=== PATIENT | male | born 1990 | race Caucasian/White ===

== ENCOUNTER → 2017-09-28 07:25 | Outpatient (CLI) | payer MEDICAID, SELFPAY | PROVIDERS: Family Provider Family Medicine; PCP Family Medicine; Visit Provider Family Medicine | DX: R07.2 Precordial pain (principal) | CPT/HCPCS: 93017 ==

== ENCOUNTER → 2018-05-05 14:04 | Outpatient (CLI) | payer MEDICAID, SELFPAY ==
--- NOTE | 2018-05-05 14:15 | XR_ITS ---
XR chest 2V HISTORY: Cough, shortness of air ITS.REASON: BRONCHITIS ORDERING PHYSICIAN: ANN Mancini PATIENT AGE: 28 years COMPARISON: 09/21/2017 FINDINGS: The cardiomediastinal silhouette and pulmonary vascularity are within normal limits. There is chronic blunting of left CP angle is clips in this region. Consolidation is present in the right lower lobe consistent with pneumonia. There are some nodular opacities in this region as well therefore, recommend follow-up until clear. No acute bony anomalies. IMPRESSION: 1. Dense consolidation in the right lower lobe consistent with pneumonia with some rounded opacities may rounded pneumonic consolidation. Recommend follow-up until clear. 2. Chronic changes in the left lung base
== END ==
PROVIDERS: PCP Family Medicine; Visit Provider Physician Assistant
DX: J40 Bronchitis, not specified as acute or chronic (principal)
CPT/HCPCS: 71046

== ENCOUNTER → 2018-06-17 10:04 | Outpatient (CLI) | payer MEDICAID, SELFPAY ==
--- NOTE | 2018-06-17 10:10 | XR_ITS ---
XR chest 2V HISTORY: ITS.REASON: PNEUMONIA OF RT LOWER LOBE ORDERING PHYSICIAN: ANN Mancini PATIENT AGE: 28 years COMPARISON: 04/25/2018 FINDINGS: Unremarkable cardiovascular structures. There is chronic blunting of the left CP angle. Increased consolidation is noted in the right lower lobe have a somewhat lobular contour. Neoplasm is a consideration and chest CT with contrast is suggested for further evaluation. No acute bony anomalies. IMPRESSION: Worsening consolidation in the right lower lobe with rounded contour. Neoplasm or abscess is a consideration and chest CT with contrast is recommended for further evaluation
== END ==
PROVIDERS: PCP Family Medicine; Visit Provider Physician Assistant
DX: J18.1 Lobar pneumonia, unspecified organism (principal)
CPT/HCPCS: 71046

== ENCOUNTER → 2018-06-28 10:45 | Outpatient (CLI) | payer MEDICAID, SELFPAY ==
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
== END ==
PROVIDERS: PCP Physician Assistant; Visit Provider Physician Assistant
DX: J18.1 Lobar pneumonia, unspecified organism (principal)
CPT/HCPCS: 71260; Q9967

== ENCOUNTER → 2018-10-04 16:40 | Outpatient (CLI) | payer MEDICAID, SELFPAY ==
--- NOTE | 2018-10-04 16:44 | XR_ITS ---
XR chest 2V HISTORY: Follow-up pneumonia/masslike consolidation ITS.REASON: FOLLOW UP RLL LESION ORDERING PHYSICIAN: Arun Palma MD PATIENT AGE: 28 years COMPARISON: 06/17/2018, 06/28/2018 FINDINGS: The cardiomediastinal silhouette and pulmonary vascularity are within normal limits. There are chronic changes in the left lower lobe with chronic pleural thickening and blunting of the left CP angle. There remains some patchy density in the right lower lobe consistent with some residual pneumonia. The right lower lobe pneumonia has however shown moderate improvement. No acute bony findings. IMPRESSION: Persistent but improving right lower lobe pneumonia with chronic changes in the left lung base
== END ==
PROVIDERS: PCP Family Medicine; Visit Provider Family Medicine
DX: R91.1 Solitary pulmonary nodule (principal); J18.9 Pneumonia, unspecified organism
CPT/HCPCS: 71046

== ENCOUNTER → 2018-10-21 13:03 | Outpatient (CLI) | payer MEDICAID, SELFPAY ==
--- NOTE | 2018-10-21 13:08 | XR_ITS ---
XR knee LT 3V HISTORY: ITS.REASON: pain ORDERING PHYSICIAN: Che Castano MD PATIENT AGE: 28 years COMPARISON: None FINDINGS: No fracture or dislocation. No lytic or blastic change. Normal mineralization. No significant arthritic changes evident. No other significant findings IMPRESSION: Negative Knee
== END ==
PROVIDERS: PCP Family Medicine; Visit Provider Orthopaedic Surgery
DX: S76.319A Strain of muscle, fascia and tendon of the posterior muscle group at thigh level, unspecified thigh, initial encounter (principal)
CPT/HCPCS: 73562

== ENCOUNTER → 2018-11-22 11:49 | Outpatient (CLI) | payer MEDICAID, SELFPAY | PROVIDERS: PCP Family Medicine; Visit Provider Family Medicine | DX: G47.33 Obstructive sleep apnea (adult) (pediatric) (principal); R06.83 Snoring | CPT/HCPCS: 95806 ==

== ENCOUNTER → 2019-03-29 13:11 | Outpatient (CLI) | payer OTHER, SELFPAY | PROVIDERS: PCP Family Medicine; Visit Provider Nurse Practitioner Family | DX: G47.33 Obstructive sleep apnea (adult) (pediatric) (principal); G47.34 Idiopathic sleep related nonobstructive alveolar hypoventilation | CPT/HCPCS: 94762 ==

== ENCOUNTER → 2019-06-15 12:11 | Outpatient (CLI) | payer OTHER, SELFPAY ==
[2019-06-15 14:34] LABS: Blood Urea Nitrogen 21 mg/dl (9-20); Estimated Glomerular Filt Rate 113 ml/min (>60); GFR (African American) 136 ML/MIN (>60); Glucose,Random 123 mg/dL (74-100); Potassium 4.7 mmoL/L (3.5-5.1); Uric Acid 6.5 mg/dl (3.5-8.5)
== END ==
PROVIDERS: Visit Provider Physician Assistant Medical
DX: L70.0 Acne vulgaris (principal); Z79.899 Other long term (current) drug therapy
CPT/HCPCS: 36415; 82565; 82947; 84132; 84520; 84550

== ENCOUNTER → 2020-04-18 12:42 | Outpatient (CLI) | payer OTHER, SELFPAY ==
--- NOTE | 2020-04-18 12:57 | XR_ITS ---
PROCEDURE: XR CHEST PORTABLE CLINICAL HISTORY: COVID SCREENING Cough COMPARISON: CR CXR2V XR chest 2V from 05/05/2018 CR CXR2V XR chest 2V from 06/17/[address] chest w con from 06/28/2018 CR XR CHEST 2V from 05/30/2019 FINDINGS: The cardiomediastinal silhouette and pulmonary vascularity are within normal limits. There is blunting of the left CP angle with minimal atelectatic or fibrotic changes in the left lung base. No acute bony abnormalities. IMPRESSION: Chronic changes left lung base. No change with no acute finding. Dictated by: Dewey Bartholomew MD 04/18/2020 15:02 Dewey Bartholomew MD in [place] 04/18/2020 15:02
[2020-04-18 13:35] LABS: Basophils # 0.1 K/mm3 (0-0.2); Basophils % 0.8 % (0.1-2.0); Eosinophils # 0.1 K/mm3 (0.0-0.4); Eosinophils % 1.6 % (0.1-12.0); Hematocrit 51.4 % (42.0-52.0); Hemoglobin 17.5 g/dL (14.1-18.0); Lymphocytes # 1.1 K/mm3 (0.7-4.5); Mean Corpuscular Hemoglobin 29.7 pg (27.0-31.2); Mean Corpuscular Volume 87.5 fl (80-94); Mean Platelet Volume 9.6 fl (7.4-10.4); Monocytes # 0.8 K/mm3 (0.1-1.0); Monocytes % 9.6 % (1.7-9.3); Neutrophils # 6.2 K/mm3 (1.8-7.8); Platelet Count 332 K/mm3 (142-424); Red Blood Count 5.87 M/mm3 (4.60-6.20); Red Cell Distribution Width 14.2 % (11.5-17.5); White Blood Count 8.3 K/mm3 (4.8-10.8)
== END ==
PROVIDERS: PCP Family Medicine; Visit Provider Physician Assistant
DX: Z20.822 Contact with and (suspected) exposure to COVID-19 (principal); U07.1 COVID-19
CPT/HCPCS: 36415; 71045; 85025; U0003

== ENCOUNTER 2020-04-23 21:01 | Emergency (ER) | payer OTHER, SELFPAY ==
[2020-04-23 21:01] VITALS: BP 128/80; PULSE 110; RESP 18; TEMP 37.3; O2SAT 95; BMI 40.4
[2020-04-23 21:11] VITALS: BMI 38.7
--- NOTE | 2020-04-23 21:14 | ECG_ITS ---
APPROVED REPORT Exam: Resting ECG HR:114 bpm ECG Measurements Heart Rate 114 AXES NJ 152 P 18 QRSd 98 QRS -14 QT 318 T 37 QTc 438 Conclusion Sinus tachycardia with fusion complexes Minimal voltage criteria for LVH, may be normal variant Borderline ECG Electronically signed by : Luis Pink, 04/24/2020 13:49:48
--- NOTE | 2020-04-23 21:14 | XR_ITS ---
PROCEDURE: XR CHEST PORTABLE CLINICAL HISTORY: covid,short of breath COMPARISON: CR CXR2V XR chest 2V from 06/17/[address] chest w con from 06/28/2018 CR XR CHEST 2V from 05/30/2019 CR XR CHEST PORTABLE from 04/18/2020 FINDINGS: The cardiomediastinal silhouette and pulmonary vascularity are within normal limits. There is chronic blunting of the left CP angle. Lungs are otherwise clear. No acute bony abnormalities. IMPRESSION: Chronic blunting left CP angle. No change with no acute finding Dictated by: Dewey Bartholomew MD 04/24/2020 05:12 Dewey Bartholomew MD in [place] 04/24/2020 05:12
--- NOTE | 2020-04-23 21:15 | CT_ITS ---
PROCEDURE: CT ANGIO CHEST CLINCIAL INDICATION: shortness of air, covid Increasing shortness of breath and diaphoresis COMPARISON: CT CHESTW CT chest w con from 06/28/2018 TECHNIQUE: IV Contrast: 70ML Isovue 370 Axial images obtained with sagittal and coronal reformats. All CT scans at the facility use one or more dose reduction, viz: automated exposure control, ma/kV adjustment per patient size (including targeted exams where dose is matched to indication, i.e. head), or iterative reconstruction technique. FINDINGS: HEART AND MEDIASTINAL STRUCTURES: No evidence of pulmonary embolus, aortic aneurysm, or aortic dissection. Scattered mildly prominent nodes are present in the mediastinum. LUNGS AND PLEURAL SPACES: Multifocal ground-glass infiltrates are present in the upper and lower lobes with some atelectatic changes in the lung bases. Elevated left hemidiaphragm. No effusions. BONY STRUCTURES: No acute bony abnormalities apparent. UPPER ABDOMEN: Fatty liver ADDITIONAL FINDINGS: No other significant abnormalities. IMPRESSION: No evidence of pulmonary embolus, aortic aneurysm, or aortic dissection. Bilateral multifocal areas of ground-glass infiltrate consistent with Covid19 pneumonia Dictated by: Dewey Bartholomew MD 04/24/2020 06:02 Dewey Bartholomew MD in [place] 04/24/2020 06:02
[2020-04-23 21:30] VITALS: BP 114/78; PULSE 98; RESP 18; O2SAT 94
[2020-04-23 21:31] LABS: Basophils # 0.1 K/mm3 (0-0.2); Eosinophils % 0.2 % (0.1-12.0); Hematocrit 52.3 % (42.0-52.0); Hemoglobin 17.8 g/dL (14.1-18.0); Lymphocytes # 1.3 K/mm3 (0.7-4.5); Lymphocytes % 25.2 % (10-50); Mean Corpuscular Hemoglobin 29.9 pg (27.0-31.2); Mean Corpuscular Volume 87.9 fl (80-94); Mean Platelet Volume 7.8 fl (7.4-10.4); Monocytes # 0.3 K/mm3 (0.1-1.0); Monocytes % 6.4 % (1.7-9.3); Neutrophils # 3.4 K/mm3 (1.8-7.8); Neutrophils % 66.2 % (37.0-80.0); Platelet Count 223 K/mm3 (142-424); Red Blood Count 5.96 M/mm3 (4.60-6.20); Red Cell Distribution Width 14.4 % (11.5-17.5); White Blood Count 5.1 K/mm3 (4.8-10.8)
--- NOTE | 2020-04-23 21:37 | HMH.EDSOB ---
ED Disposition Clinical Impression: COVID-19 with pulmonary comorbidity, Obesity (BMI 30-39.9), Elevated serum glucose Disposition: Home, Self-Care Condition on Discharge: Fair Instructions: DI for COVID-19 (Suspected or Confirmed ) Additional Instructions: use meds at this time and call pcp about labs Prescriptions: predniSONE [Prednisone 20mg Tab] 20 mg PO BID #10 tab Transmission Status: Pending to [id number] Referrals: Arun Palma MD [Primary Care Provider] - - Critical Care Critical Care Time: No Attestation: On 04/23/20, the high probability of a clinically significant, sudden or life threatening deterioration of the following system(s) required my full and direct attention, intervention and personal management. The time I documented below is in addition to time spent performing reported procedures but includes the following listed in this critical care notation. Medical Decision Making - Medical Records Medical records reviewed: Yes: I reviewed the patient's medical records. - Que Inquiry Pt receiving controlled substance: No Vital Signs: 04/23/20 21:01 Temperature 99.1 F Temperature Source Oral Pulse Rate [Apical] 110 H Respiratory Rate 18 Blood Pressure [Right Arm] 128/80 Blood Pressure Mean [Right Arm] 96 Blood Pressure Source [Right Arm] Automatic Cuff Blood Pressure Position [Right Arm] Supine 02 Sat by Pulse Oximetry 95 Oxygen Delivery Method Room Air - Lab Data Lab results reviewed: Yes: I reviewed the patient's lab results. Lab Results 04/23/20 21:20: WBC 5.1, RBC 5.96, Hgb 17.8, Hct 52.3 H, MCV 87.9, MCH 29.9, MCHC 34.0, RDW 14.4, Plt Count 223, MPV 7.8, Neut % (Auto) 66.2, Lymph % (Auto) 25.2, Culberson % (Auto) 6.4, Eos % (Auto) 0.2, Baso % (Auto) 2.0, Neut # (Auto) 3.4, Lymph # (Auto) 1.3, [place] # (Auto) 0.3, Eos # (Auto) 0.0, Baso # (Auto) 0.1 04/23/20 21:20: Sodium 134 L, Potassium 3.7, Chloride 99, Carbon Dioxide 25, Anion Gap 13.7, BUN 13, Creatinine 0.90, Estimated Creat Clear 193, Estimated GFR 98, Est GFR ( Amer) 118, Glucose 281 H, Calcium 8.9, Total Bilirubin 0.6, Direct Bilirubin 0.2, Conjugated Bilirubin 0.0, Indirect Bilirubin 0.4, Unconjugated Bilirubin 0.4, AST 99 H, ALT 129 H, Alkaline Phosphatase 91, Troponin I < 0.01, Total Protein 8.5 H, Albumin 4.4, Procalcitonin 0.091, TSH 1.83, Thyroxine (T4) 12.6 H 04/23/20 21:20: Lactate 1.5 04/23/20 21:20: C-Reactive Protein 28.7 H, NT-Pro-B Natriuret Pep < 11.1 04/23/20 21:20: ESR 18 H Result diagrams: 04/23/20 21:20 04/23/20 21:20 Orders (Tests/Meds): ED MEDICATIONS Generic Name Dose Route Start Last Admin Trade Name Freq PRN Reason Stop Dose Admin Sodium Chloride 1,000 mls @ 999 mls/hr 04/23/20 21:30 04/23/20 21:25 Sod Chlor 0.9% 1000ml Bag IV 04/23/20 22:30 999 mls/hr .Q1H1M RAQUEL Administration Discontinued Medications Generic Name Dose Route Start Last Admin Trade Name Freq PRN Reason Stop Dose Admin Dexamethasone Sodium Phosphate 10 mg 04/23/20 21:14 04/23/20 21:24 Dexamethasone 4mg/Ml 5ml Mdv IV 04/23/20 21:15 Not Given ONCE ONE Dexamethasone Sodium Phosphate 10 mg 04/23/20 21:24 04/23/20 21:25 Dexamethasone 4mg/Ml 1ml Vial IV 04/23/20 21:25 10 mg ONCE ONE Administration Ibuprofen 600 mg 04/23/20 21:15 04/23/20 21:25 Ibuprofen 600 Mg Tablet PO 04/23/20 21:16 600 mg ONCE ONE Administration Iopamidol 70 ml 04/23/20 21:59 04/23/20 22:00 Iopamidol-370 (76%);100ml Bottle IV 04/23/20 22:00 70 ml ONCE ONE Administration Sodium Chloride 40 ml 04/23/20 21:59 04/23/20 22:00 0.9 % Sodium Chloride 50 Ml Vial IV 04/23/20 22:00 40 ml ONCE ONE Administration Sodium Chloride 10 ml 04/23/20 21:59 04/23/20 22:00 Sodium Chloride 0.9% 10ml Syr (Rad Only) IV 04/23/20 22:00 10 ml ONCE ONE Administration ORDERS Category Date Time Status CT Chest w/PE protocol [CT angio chest] Stat Cat Scan 04/23/20 21:1
[2020-04-23 21:40] LABS: Lactic Acid 1.5 mmol/L (0.7-2.1)
[2020-04-23 21:41] LABS: Alanine Aminotransferase 129 U/L (12-78); Albumin Level 4.4 g/dl (3.5-5.0); Alkaline Phosphatase 91 U/L (38-126); Anion Gap 13.7 mEq/L (5-15); Aspartate Amino Transferase 99 U/L (17-59); Bilirubin,Direct 0.2 mg/dl (0.0-0.4); Bilirubin,Indirect 0.4 mg/dL (0.0-0.9); Bilirubin,Total 0.6 mg/dl (0.2-1.3); Bilirubin,Unconjugated 0.4 mg/dL (0.0-1.1); Blood Urea Nitrogen 13 mg/dl (9-20); Calcium 8.9 mg/dl (8.4-10.2); Carbon Dioxide 25 mmol/L (22.0-30.0); Chloride 99 mmol/L (98-107); Creatinine Clearance Estimated 193 mL/min (50-200); Estimated Glomerular Filt Rate 98 ml/min (>60); GFR (African American) 118 ML/MIN (>60); Glucose 281 mg/dl (74-100); Potassium 3.7 mmoL/L (3.5-5.1); Sodium 134 mmol/L (136-145); Total Protein,Serum 8.5 g/dl (6.3-8.2)
[2020-04-23 21:44] LABS: C-Reactive Protein 28.7 mg/L (0-4)
[2020-04-23 21:59] LABS: Procalcitonin 0.091 ng/mL (0.0-2.0); T4 (Thyroxine) 12.6 ug/dl (5.53-11.0)
[2020-04-23 22:05] LABS: Erythrocyte Sedimentation Rate 18 mm/hr (0-15); NT Pro Brain Natriuretic Pep. < 11.1 pg/mL (0-125); Troponin I < 0.01 ng/ml (0.00-0.034)
[2020-04-23 22:13] LABS: Thyroid Stimulating Hormone 1.83 uIU/mL (0.465-4.68)
[2020-04-23 22:31] VITALS: BP 123/71; PULSE 85; RESP 20; O2SAT 93
[2020-04-23 23:35] VITALS: BP 115/72; PULSE 85; RESP 17; TEMP 36.7; O2SAT 93
[2020-04-23 23:49] LABS: Hemoglobin A1C 9.2 % (4.0-6.0)
== END 2020-04-23 23:37 | disposition home or self-care (01) ==
PROVIDERS: Emergency Provider Emergency Medicine; PCP Family Medicine
DX: R06.02 Shortness of breath (principal); R05 Cough; Z20.822 Contact with and (suspected) exposure to COVID-19; R73.9 Hyperglycemia, unspecified; E66.9 Obesity, unspecified; Z68.38 Body mass index [BMI] 38.0-38.9, adult; Z88.1 Allergy status to other antibiotic agents
CPT/HCPCS: 71045; 71275; 80048; 80076; 83036; 83605; 83880; 84145; 84436; 84443; 84484; 85025; 85651; 86140; 93005; 96365; 96375; 99283; Q9967

== ENCOUNTER 2020-04-28 07:48 | Emergency (ER) | payer OTHER, SELFPAY ==
[2020-04-28] VITALS (7 sets, daily range): BP systolic 108–126; BP diastolic 63–84; PULSE 90–115; RESP 20–21; TEMP 37.2–38; O2SAT 90–95; BMI 41.4
--- NOTE | 2020-04-28 07:58 | HMH.EDGENADL ---
ED Disposition Clinical Impression: Pneumonia due to COVID-19 virus Disposition: Home, Self-Care Condition on Discharge: Good Additional Instructions: Take these over the counter multivitamins: Zinc 220 mg daily Vitamin D 1000 Units daily Vitamin C 500 mg 4 x daily Take dexamethasone as prescribed with food Use 1-2 L home O2 via NC for dyspnea Drink plenty of clear fluids Return immediately if decreased P.O. intake, concern for dehydration, generalized malaise, shortness of breath, or other new concerning symptoms Prescriptions: dexAMETHasone [Dexamethasone] 6 mg PO DAILY 5 Days #5 tab Prescription Printed Referrals: Arun Palma MD [Primary Care Provider] - - Critical Care Critical Care Time: No Attestation: On 04/28/20, the high probability of a clinically significant, sudden or life threatening deterioration of the following system(s) required my full and direct attention, intervention and personal management. The time I documented below is in addition to time spent performing reported procedures but includes the following listed in this critical care notation. Medical Decision Making - Medical Records Medical records reviewed: Yes: I reviewed the patient's medical records. - Que Inquiry Pt receiving controlled substance: No Vital Signs: 04/28/20 07:49 04/28/20 09:02 Temperature 100.4 F H 98.9 F Temperature Source Oral Oral Pulse Rate [Left Radial] 115 H 110 H Respiratory Rate 21 20 Blood Pressure [Right Arm] 126/84 118/73 Blood Pressure Mean [Right Arm] 98 88 Blood Pressure Source [Right Arm] Automatic Cuff Automatic Cuff Blood Pressure Position [Right Arm] Sitting Sitting 02 Sat by Pulse Oximetry 93 L 95 Oxygen Delivery Method Room Air Room Air - Lab Data Lab Results 04/28/20 08:25: WBC 11.7 H, RBC 5.40, Hgb 16.1, Hct 47.9, MCV 88.8, MCH 29.8, MCHC 33.6, RDW 16.5, Plt Count 318, MPV 15.6 H, Neut % (Auto) 73.1, Lymph % (Auto) 18.2, Forrest % (Auto) 5.8, Eos % (Auto) 0.0 L, Baso % (Auto) 2.9 H, Neut # (Auto) 8.6 H, Lymph # (Auto) 2.1, Forrest # (Auto) 0.7, Eos # (Auto) 0.0, Baso # (Auto) 0.3 H 04/28/20 08:25: Sodium 135 L, Potassium 3.4 L, Chloride 95 L, Carbon Dioxide 31 H, Anion Gap 12.4, BUN 17, Creatinine 0.90, Estimated Creat Clear 126, Estimated GFR 98, Est GFR ( Amer) 118, Glucose 297 H, Calcium 9.1 Result diagrams: 04/28/20 08:25 04/28/20 08:25 Orders (Tests/Meds): ED MEDICATIONS Discontinued Medications Generic Name Dose Route Start Last Admin Trade Name Rina PRN Reason Stop Dose Admin Acetaminophen 500 mg 04/28/20 08:19 04/28/20 08:41 Acetaminophen 500mg Tab PO 04/28/20 08:20 500 mg ONCE ONE Administration Sodium Chloride 1,000 mls @ 999 mls/hr 04/28/20 08:15 04/28/20 08:39 Sod Chlor 0.9% 1000ml Bag IV 04/28/20 09:15 999 mls/hr .Q1H1M RAQUEL Administration Ibuprofen 600 mg 04/28/20 08:19 04/28/20 08:40 Ibuprofen 600 Mg Tablet PO 04/28/20 08:20 600 mg ONCE ONE Administration ORDERS Category Date Time Status XR chest portable Stat Exams 04/28/20 08:05 Taken Medical Decision Narrative: Patient presents with some dyspnea with known diagnosis of Covid. I reviewed his chart and he was seen here several days for similar complaint. At that time work-up was done including CT PE study demonstrated no pulmonary embolus. He continues to struggle with Covid and has cough with some shortness of breath. Saturations between 88 and 89% on arrival. Supplemental O2 applied. Work-up initiated for further ruling out other etiologies of patient's shortness of breath. X-ray demonstrates what appears to be Covid pneumonia with no obvious focal consolidation or infiltrate that could represent a superimposed bacterial infection. Patient treated with fluids and Tylenol with ibuprofen with some relief of his symptoms. Heart rate has improved. Lab work relatively unremarkable. Patient tried to wean off of supplemental O2 after albu
--- NOTE | 2020-04-28 08:05 | XR_ITS ---
PROCEDURE: XR CHEST PORTABLE Referring Doctor: Carlin Tsang Patient Age:30Y CLINICAL HISTORY: soa; covd positive COMPARISON: CR XR CHEST 2V from 05/30/2019 CR XR CHEST PORTABLE from 04/18/2020 CR XR CHEST PORTABLE from 04/23/[address] ANGIO CHEST from 04/23/2020 FINDINGS: AP portable chest upright. Less optimal inspiration today. And thus a 2nd AP CXR was performed with better expansion.; Previously down to the anterior 7th rib on April 23 2020 CXR of today the diaphragm is only down to the anterior 4th-5th rib. This suboptimal inspiration crowds markings bilaterally but there does appear to be bilateral diffuse minimal patchy infiltrates. Question mild vascular prominence difficult to exclude mild CHF associated with diffuse slight patchy pneumonic infiltrates bilaterally. The on the better inspiration in image the infiltrates are most evident at the left mid lung and left base partially obscuring the left CP angle. Of heart upper normal in size borderline cardiomegaly chest wall unremarkable the . Borderline cardiomegaly. Maida and mediastinal structures appears similar to previous studies considering technique. IMPRESSION: . Suboptimal inspiration accentuates markings, but there does appear to developing diffuse patchy bilateral infiltrates. . Most evident infiltrate at the left perihilar region and left lung base . Question mild vascular congestion heart upper normal size-these features may be accentuated by suboptimal inspiration Dictated by: Maury Saleem MD 04/28/2020 11:42 Maury Saleem MD in [place] 04/28/2020 11:42
[2020-04-28 08:39] LABS: Basophils # 0.3 K/mm3 (0-0.2); Basophils % 2.9 % (0.1-2.0); Hematocrit 47.9 % (42.0-52.0); Hemoglobin 16.1 g/dL (14.1-18.0); Lymphocytes # 2.1 K/mm3 (0.7-4.5); Lymphocytes % 18.2 % (10-50); Mean Corpuscular HGB Conc 33.6 g/dL (31.8-35.4); Mean Corpuscular Hemoglobin 29.8 pg (27.0-31.2); Mean Corpuscular Volume 88.8 fl (80-94); Mean Platelet Volume 15.6 fl (7.4-10.4); Monocytes # 0.7 K/mm3 (0.1-1.0); Monocytes % 5.8 % (1.7-9.3); Neutrophils # 8.6 K/mm3 (1.8-7.8); Neutrophils % 73.1 % (37.0-80.0); Platelet Count 318 K/mm3 (142-424); Red Cell Distribution Width 16.5 % (11.5-17.5); White Blood Count 11.7 K/mm3 (4.8-10.8)
[2020-04-28 08:43] LABS: Chloride 95 mmol/L (98-107); Potassium 3.4 mmoL/L (3.5-5.1); Sodium 135 mmol/L (136-145)
[2020-04-28 08:46] LABS: Anion Gap 12.4 mEq/L (5-15); Blood Urea Nitrogen 17 mg/dl (9-20); Calcium 9.1 mg/dl (8.4-10.2); Carbon Dioxide 31 mmol/L (22.0-30.0); Creatinine Clearance Estimated 126 mL/min (50-200); Estimated Glomerular Filt Rate 98 ml/min (>60); GFR (African American) 118 ML/MIN (>60); Glucose 297 mg/dl (74-100)
--- NOTE | 2020-04-28 09:40 | PC.NURSE ---
pt has desatted to 88% on RA, pt instructed to sit up in the bed, states he felt like he could get a deeper breath sitting straight up. ER MD aware. Will continue to monitor
--- NOTE | 2020-04-28 09:55 | PC.NURSE ---
pt desatted to 88% on RA, notified ER MD, pt placed on O2 at 1L per NC per ER MD order. Will continue to monitor
--- NOTE | 2020-04-28 10:01 | PC.NURSE ---
warehouse insulation worker assisting with acquiring home oxygen for pt
--- NOTE | 2020-04-28 10:08 | PC.NURSE ---
pt 88% on RA, pt placed on 1L per NC, pt is now 95% on 1L per NC. will continue to monitor.
== END 2020-04-28 13:00 | disposition home or self-care (01) ==
PROVIDERS: Emergency Medicine; Emergency Provider Emergency Medicine; PCP Family Medicine
DX: U07.1 COVID-19 (principal); J12.82 Pneumonia due to coronavirus disease 2019; F41.8 Other specified anxiety disorders
CPT/HCPCS: 71045; 80048; 85025; 96365; 99284

== ENCOUNTER → 2020-09-27 15:20 | Outpatient (CLI) | payer OTHER, SELFPAY ==
[2020-09-27 15:43] LABS: Basophils # 0.1 K/mm3 (0-0.2); Basophils % 1.1 % (0.1-2.0); Eosinophils # 0.4 K/mm3 (0.0-0.4); Hematocrit 46.1 % (42.0-52.0); Hemoglobin 15.9 g/dL (14.1-18.0); Lymphocytes # 3.8 K/mm3 (0.7-4.5); Lymphocytes % 31.6 % (10-50); Mean Corpuscular HGB Conc 34.6 g/dL (31.8-35.4); Mean Corpuscular Hemoglobin 29.2 pg (27.0-31.2); Mean Corpuscular Volume 84.6 fl (80-94); Mean Platelet Volume 7.7 fl (7.4-10.4); Monocytes # 0.7 K/mm3 (0.1-1.0); Monocytes % 5.9 % (1.7-9.3); Neutrophils # 7.1 K/mm3 (1.8-7.8); Neutrophils % 58.4 % (37.0-80.0); Platelet Count 349 K/mm3 (142-424); Red Blood Count 5.46 M/mm3 (4.60-6.20); Red Cell Distribution Width 14.1 % (11.5-17.5); White Blood Count 12.2 K/mm3 (4.8-10.8)
[2020-09-27 16:10] LABS: Alanine Aminotransferase 76 U/L (12-78); Albumin Level 4.3 g/dl (3.5-5.0); Albumin/Globulin Ratio 1.3 (1.1-1.8); Alkaline Phosphatase 71 U/L (38-126); Anion Gap 12.2 mEq/L (5-15); Aspartate Amino Transferase 39 U/L (17-59); Bilirubin,Total 0.5 mg/dl (0.2-1.3); Blood Urea Nitrogen 16 mg/dl (9-20); Calcium 9.1 mg/dl (8.4-10.2); Carbon Dioxide 25 mmol/L (22.0-30.0); Chloride 103 mmol/L (98-107); Chol/HDL Ratio 3.3 (1-3.5); Cholesterol 194 mg/dl (140-200); Estimated Glomerular Filt Rate 131 ml/min (>60); GFR (African American) 158 ML/MIN (>60); Globulin 3.2 g/dL (1.3-3.2); Glucose 282 mg/dl (74-100); HDL Cholesterol 58 mg/dl (40-60); Potassium 4.2 mmoL/L (3.5-5.1); Sodium 136 mmol/L (136-145); Total Protein,Serum 7.5 g/dl (6.3-8.2); Triglycerides 99 mg/dl (30-150); VLDL Cholesterol 20 mg/dL (0-40)
[2020-09-27 16:21] LABS: Direct LDL Cholesterol 121.67 mg/dL (100-129)
[2020-09-27 16:33] LABS: Hemoglobin A1C 8.1 % (4.0-6.0)
[2020-09-27 16:40] LABS: Thyroid Stimulating Hormone 3.07 uIU/mL (0.465-4.68)
== END ==
PROVIDERS: Visit Provider Family Medicine
DX: G47.33 Obstructive sleep apnea (adult) (pediatric) (principal); Z68.41 Body mass index [BMI] 40.0-44.9, adult; E55.9 Vitamin D deficiency, unspecified
CPT/HCPCS: 36415; 80053; 80061; 83036; 84443; 85025

== ENCOUNTER → 2022-03-12 02:29 | Outpatient (CLI) | payer OTHER, SELFPAY ==
[2022-03-12 02:38] VITALS: BMI 40.4
== END ==
PROVIDERS: PCP Emergency Medicine; Visit Provider Emergency Medicine
DX: K08.89 Other specified disorders of teeth and supporting structures (principal)

== ENCOUNTER → 2022-09-10 13:53 | Outpatient (CLI) | payer OTHER, SELFPAY ==
--- NOTE | 2022-09-10 | CA_ITS ---
APPROVED REPORT Exam: Exercise Treadmill Technologist: Lilian Oh, Ht: 6 ft 0 in Wt: 289 lbs BSA: 2.49 m2 HR: 66 bpm BP: 143/92 mmHg Stress Test Details Test: Colten HR Resting HR: 83 bpm Max Heart Rate (APMHR): 186.674492 bpm Max HR Achieved: 158 bpm Target HR (85% APMHR): 158.380268 bpm % of APMHR: 84.95 Recovery HR: 87 bpm BP Resting BP: 138/87 mmHg Max BP: 186/90 mmHg Recovery BP: 144.0/82.0 mmHg ECG Resting ECG: NSR, normal Clinical Exercise duration: 08:02 min Highest Stage Achieved: III Exercise capacity: 10.1 METs Stress ECG Conclusion Walked 8:02 on Colten Protocol Max HR: 158 % of PM: 85% Max BP: 186/90 METs: 10.1 Test stopped due to: SOA Symptoms: Mild chest tightness with SOA. Arrhythmias/Ectopy: None ST-T Changes: Allowing for motion artifact, the ST response to exercise is within normal. Conclusion: Mild chest tightness with normal EKGs. GXT only (no imaging) Test Summary REST . . . . . . . Sitting REST . . . . . . . Standing REST 02:56 0.0 0.0 83 . 138/ 87 . . Stage 1 01:00 10.0 1.7 102 . . . . Stage 1 02:00 10.0 1.7 104 . . . . Stage 1 03:00 10.0 1.7 112 . 164/ 86 . . Stage 2 01:00 12.0 2.5 122 . . . . Stage 2 02:00 12.0 2.5 124 . . . . Stage 2 03:00 12.0 2.5 129 . 186/ 90 . . Stage 3 01:00 14.0 3.4 143 . . . . Stage 3 02:00 14.0 3.4 154 . . . . Stage 3 02:02 14.0 3.4 155 . . . Stop exercise at 08:02 RECOVERY 01:00 0.0 0.0 120 . . . . RECOVERY 02:00 0.0 0.0 116 . . . . RECOVERY 03:00 0.0 0.0 95 . 152/ 88 . . RECOVERY 04:00 0.0 0.0 87 . 152/ 88 . . RECOVERY 05:00 0.0 0.0 84 . 144/ 83 . . RECOVERY 05:34 0.0 0.0 87 . 144/ 82 . . Electronically signed by : Luis Pink MD 09/10/2022 20:06:09
== END ==
PROVIDERS: PCP Emergency Medicine; Visit Provider Physician Assistant
DX: R07.9 Chest pain, unspecified (principal)
CPT/HCPCS: 93017